=== PATIENT | female | born 2000 | race Caucasian/White ===

== ENCOUNTER → 2020-06-19 10:35 | Outpatient (BNVA) | payer MEDICAID, SELFPAY | PROVIDERS: Family Provider Family Medicine; Visit Provider Internal Medicine | DX: J06.9 Acute upper respiratory infection, unspecified (principal) | CPT/HCPCS: 87635 ==

== ENCOUNTER → 2021-07-29 14:50 | Outpatient (BNVA) | payer MEDICAID, SELFPAY | PROVIDERS: Family Provider Family Medicine; Visit Provider Nurse Practitioner Family | DX: Z20.822 Contact with and (suspected) exposure to COVID-19 (principal); J06.9 Acute upper respiratory infection, unspecified | CPT/HCPCS: 87635 ==

== ENCOUNTER → 2022-02-28 15:01 | Outpatient (BNVA) | payer MEDICAID, SELFPAY | PROVIDERS: Family Provider Family Medicine; Visit Provider Social Worker | DX: F31.13 Bipolar disorder, current episode manic without psychotic features, severe (principal) | CPT/HCPCS: 90837; 80053; 80178; 84439; 84443; 85025 ==

== ENCOUNTER → 2022-03-13 09:28 | Outpatient (BNVA) | payer MEDICAID, SELFPAY | PROVIDERS: Family Provider Family Medicine; Visit Provider Nurse Practitioner | DX: F43.12 Post-traumatic stress disorder, chronic (principal); F31.9 Bipolar disorder, unspecified; F17.210 Nicotine dependence, cigarettes, uncomplicated; F15.21 Other stimulant dependence, in remission; F12.20 Cannabis dependence, uncomplicated | CPT/HCPCS: 90792 ==

== ENCOUNTER → 2022-03-28 15:00 | Outpatient (BNVA) | payer MEDICAID, SELFPAY | PROVIDERS: Family Provider Family Medicine; Visit Provider Social Worker | DX: F31.13 Bipolar disorder, current episode manic without psychotic features, severe (principal) | CPT/HCPCS: 90837 ==

== ENCOUNTER → 2022-04-03 10:02 | Outpatient (BNVA) | payer MEDICAID, SELFPAY | PROVIDERS: Family Provider Family Medicine; Visit Provider Nurse Practitioner | DX: Z79.899 Other long term (current) drug therapy (principal) | CPT/HCPCS: 80178 ==

== ENCOUNTER → 2022-04-04 15:03 | Outpatient (BNVA) | payer MEDICAID, SELFPAY | PROVIDERS: Family Provider Family Medicine; Visit Provider Social Worker | DX: F31.13 Bipolar disorder, current episode manic without psychotic features, severe (principal); F43.12 Post-traumatic stress disorder, chronic | CPT/HCPCS: 90834 ==

== ENCOUNTER → 2022-04-09 07:56 | Outpatient (BNVA) | payer MEDICAID, SELFPAY | PROVIDERS: Family Provider Family Medicine; Visit Provider Nurse Practitioner | DX: F43.12 Post-traumatic stress disorder, chronic (principal); F31.9 Bipolar disorder, unspecified; F17.210 Nicotine dependence, cigarettes, uncomplicated; F15.21 Other stimulant dependence, in remission; F12.20 Cannabis dependence, uncomplicated | CPT/HCPCS: 99214 ==

== ENCOUNTER → 2022-04-11 14:50 | Outpatient (BNVA) | payer MEDICAID, SELFPAY | PROVIDERS: Family Provider Family Medicine; Visit Provider Social Worker | DX: F31.13 Bipolar disorder, current episode manic without psychotic features, severe (principal); F43.12 Post-traumatic stress disorder, chronic | CPT/HCPCS: 90837 ==

== ENCOUNTER → 2023-02-09 11:30 | Outpatient (BNVA) | payer MEDICAID, SELFPAY | PROVIDERS: Family Provider Family Medicine; Visit Provider Obstetrics & Gynecology | DX: Z11.3 Encounter for screening for infections with a predominantly sexual mode of transmission (principal); R87.610 Atypical squamous cells of undetermined significance on cytologic smear of cervix (ASC-US); R87.810 Cervical high risk human papillomavirus (HPV) DNA test positive | CPT/HCPCS: 84702; 86592; 86803; 87340; 87491; 87591; 87661; 87806 ==

== ENCOUNTER → 2023-08-24 13:51 | Outpatient (BNVA) | payer MEDICAID, SELFPAY | PROVIDERS: Family Provider Family Medicine; Visit Provider Family Medicine | DX: Z72.51 High risk heterosexual behavior (principal); Z20.2 Contact with and (suspected) exposure to infections with a predominantly sexual mode of transmission | CPT/HCPCS: 81025; 87491; 87591; 87661 ==

== ENCOUNTER → 2024-02-22 10:29 | Outpatient (BNVA) | payer MEDICAID, SELFPAY | PROVIDERS: Family Provider Family Medicine; PCP Family Medicine; Visit Provider Family Medicine | DX: R30.0 Dysuria (principal); Z34.90 Encounter for supervision of normal pregnancy, unspecified, unspecified trimester | CPT/HCPCS: 80307; 81003; 81025; 84144; 84443; 84702; 85025; 86592; 86762; 86803; 86850; 86900; 87086; 87340; 87491; 87591; 87624; 87806 ==

== ENCOUNTER 2024-03-03 15:04 | Outpatient (CLI) | payer MEDICAID, SELFPAY ==
--- NOTE | 2024-03-03 15:00 | US_ITS ---
WS: [id number] EARLY OBSTETRICAL ULTRASOUND (<14 WEEKS). HISTORY: Dating US - in next 1-2 weeks COMPARISON: None available. Transabdominal and transvaginal imaging is submitted. Uterus is enlarged. There are 2 fluid-filled sacs being displaced anteriorly within the uterus. Displ acement is due to prominent soft tissue along the posterior myometrium. This is predominately of incr eased echogenicity with mild cystic spaces. This may be an area of contraction but due to the displac ement of the endometrium this should be further evaluated for possible partial molar . This area measures at least 3.8 x 4.5 cm. The endometrium is being displaced anteriorly. The gestational sac which is to the RIGHT contains a f etal pole measuring 1.5 cm which corresponds to a gestation of 7 weeks and 6 days. Cardiac activity i s evident at 169 bpm. The additional small fluid collection may be a blighted oval or adjacent subcho rionic hemorrhage. There is no pole or cardiac activity. No yolk sac. No free fluid. Note: Recommend short-term, 1 week follow-up to reevaluate the intrauterine contents. Need to evaluat e whether the displacement of the endometrium persists. Also, measurements of the fetus with cardiac activity are not accurate and measurements need to be re submitted. Measurement within the worksheet were incorrectly submitted. This will be corrected at the time of the additional ultrasound. US/US OB <=14 wk fetus w transvag IMPRESSION: 1. There are 2 fluid-filled sacs in the endometrium. Only one contains a pole with cardiac activity. Gestational age estimated at 7 weeks 6 days. 2. The additional smaller sac does not contain a yolk sac or pole. This may be a blighted ovum or a subchorionic hemorrhage. 3. Endometrium is being displaced anteriorly by an area of increased echogenic ity. This needs to be further evaluated. Differential includes focal contractio n, fibroid or partial molar . No fibroid was identified on a prior pel quinten ultrasound from 2019.
== END 2024-03-03 15:05 | disposition home or self-care (01) ==
LOC: RAD 15:04
PROVIDERS: Family Provider Family Medicine; PCP Family Medicine; Visit Provider Family Medicine
DX: Z34.80 Encounter for supervision of other normal pregnancy, unspecified trimester (principal); O28.3 Abnormal ultrasonic finding on antenatal screening of mother
CPT/HCPCS: 76801; 76817

== ENCOUNTER 2024-03-10 12:40 | Outpatient (CLI) | payer MEDICAID, SELFPAY ==
--- NOTE | 2024-03-10 12:45 | US_ITS ---
WS: [id number] EARLY OBSTETRICAL ULTRASOUND (<14 WEEKS). HISTORY: Follow up on cystic structure, growth and blighted ovum COMPARISON: 03/03/2024 Intrauterine gestational sac is identified. This sac contains a pole and crown-rump length with cardiac activity. Cardiac activity at 171 BPM. [place]-rump length measures 2.3 cm which corresponds t o a gestation of 9w0d. Normal-appearing yolk sac and amnion demonstrated. There is a small fluid cande ection adjacent to the normal-appearing gestational sac. This collection is inseparable from the norm al gestational sac and measures 0.6 x 0.7 x 0.7 cm. There is no pole or cardiac activity. This small cystic areas decreasing in size. The previously described displacement of the gestational sac is no longer present. The large area of increased echogenicity is resolved. There is no longer appears to be a molar and may have b een a form of contraction. No free fluid. Normal size ovaries with no mass. Note: The crown-rump length measurement on today's examination is more accurate than the measurement obtained on the prior study. Recommend using this gestational age moving forward as a reference point . US/US OB <=14 wk fetus w transvag IMPRESSION: 1. Single intrauterine gestation of 9w0d with an EDC of 10/13/2024. 2. Normal cardiac activity. 3. The small fluid collection adjacent to the gestational sac containing the e mbryo continues to decrease in size. This may be a resolving blighted ovum or c ystic subchorionic bleed. There does not appear to be a pole or cardiac a ctivity within the smaller sac which is decreasing in size. 4. Resolved area of increased density distorting the gestational sac. This was probably a form of uterine contraction. There is no evidence for partial molar .
== END 2024-03-10 12:41 | disposition home or self-care (01) ==
LOC: RAD 12:40
PROVIDERS: Family Provider Family Medicine; PCP Family Medicine; Visit Provider Family Medicine
DX: R93.89 Abnormal findings on diagnostic imaging of other specified body structures (principal); Z34.80 Encounter for supervision of other normal pregnancy, unspecified trimester
CPT/HCPCS: 76801; 76817

== ENCOUNTER 2024-03-20 14:03 | Emergency (ER) | payer MEDICAID, SELFPAY ==
--- NOTE | 2024-03-20 14:07 | USR_ITS ---
PROCEDURE INFORMATION: Exam: US First Trimester, Transabdominal and US , Transvaginal Exam date and time: 03/20/2024 2:55 PM Age: 23 years old Clinical indication: Lmp or gestational age (in weeks): 10w3d; Antepartum complications; Bleeding; LABS AND CLINICAL REPORTS: Gestational age (Established): 10 w 3 d Estimated due date (Established): 10/13/2024 TECHNIQUE: Imaging protocol: Real-time transabdominal obstetrical ultrasound of the maternal pelvis and a first trimester , less than 14 weeks 0 days, with image documentation. Transvaginal imaging was used for better evaluation of the fetus, adnexa, and/or cervix. COMPARISON: US OB <=14 wk fetus w transvag 03/10/2024 1:15 PM FINDINGS: GESTATION: Gestation: Yolk sac measures 3.6 mm. Intermediate echogenicity collection adjacent to the gestational sac measures 1.9 x 1.8 x 3.0 cm. Embryonic/ heart rate: 165 bpm Extra-embryonic membranes/Placenta: Unremarkable. No subchorionic bleed. Amniotic/Chorionic fluid: Amniotic and extra-amniotic fluid are normal for gestational age. BIOMETRY: Gestational age (AUA): Estimated gestational age by ultrasound is 10 weeks and 5 days. Estimated due date (AUA): Estimated due date by ultrasound is 10/11/2024. MATERNAL: Uterus: Unremarkable. Cervix: Normal cervical length at 3.8 cm. Right ovary/adnexa: The right ovary measures 1.7 x 2.1 x 1.7 cm with a volume of 3.3 cc. The left ovary measures 2.8 x 1.7 x 2.0 cm with a volume of 5.1 cc. 1.0 x 1.0 x 1.0 cm cystic lesion in the left ovary likely represents a corpus luteum cyst. Left ovary/adnexa: See Right ovary/adnexa finding. Intraperitoneal space: No intraperitoneal free fluid. US/US OB <= 14 weeks fetus [id number] IMPRESSION: 1. There is a 3.0 cm collection adjacent to the gestational sac with intermediate echogenicity likely representing subacute subchorionic hemorrhage. 2. Single live intrauterine gestation. EGA based on ultrasound is 10 weeks and 5 days.
[2024-03-20 14:10] VITALS: BP 118/82; PULSE 89; RESP 14; TEMP 36.6; O2SAT 99
[2024-03-20 14:29] LABS: Basophils % 0.1 %; Eosinophils # 0.2 10^3/uL (0.0-0.8); Eosinophils % 2.2 %; Hematocrit 39.1 % (36-47); Lymphocytes # 1.1 10^3/uL (0.8-4.8); Lymphocytes % 14.5 %; Mean Corpuscular HGB Conc 34.3 g/dL (30-55); Mean Corpuscular Hemoglobin 32.1 pg (27-33); Mean Corpuscular Volume 93.5 fl (85-98); Mean Platelet Volume 10.4 fL (7.4-10.4); Monocytes # 0.5 10^3/uL (0.2-0.9); Monocytes % 7.3 %; Neutrophils # 5.58 10^3/uL (1.8-7.7); Neutrophils % 75.5 %; Nucleated Red Blood Cells % 0 %; Platelet Count 154 10^3/cmm (157-399); Red Blood Count 4.18 10^6/uL (3.85-5.65); Red Cell Distribution Width 12.4 % (12.1-15.1); White Blood Count 7.39 10^3/uL (3.29-11.43)
[2024-03-20 15:00] LABS: Alanine Aminotransferase 12 U/L (0-33); Alkaline Phosphatase 53 U/L (35-105); Anion Gap 15.4 (5-19); Aspartate Amino Transferase 14 U/L (0-32); Blood Urea Nitrogen 6 mg/dL (6-20); Calcium 8.9 mg/dL (8.5-10.5); Carbon Dioxide 23 mmol/L (22-29); Chloride 102 mmol/L (98-107); Creatinine Clr Calc Pharmacy 139.2824; Globulin 2.3 g/dL (1.3-4.6); Glomerular Filtration Rate 151.6 mL/min (90-130); Glucose 95 mg/dL (65-115); Osmolality Calculated 279 mOsm/kg (285-295); Potassium 4.4 mmol/L (3.5-5.1); Sodium 136 mmol/L (136-145); Total Bilirubin 0.3 mg/dL (0.15-1.2); Total Protein 6.3 g/dL (6.6-8.7)
[2024-03-20 15:14] LABS: Urine Appearance Cloudy (CLEAR); Urine Color Red (Yellow); pH Urine 7 (5-7)
[2024-03-20 15:15] LABS: Add Urine Culture? Yes; Add Urine Microscopic? YES; Bacteria Urine TRACE /hpf; Bilirubin Urine Neg (Negative); Blood Urine 3+ (Negative); Glucose Urine UA Norm (Normal); Ketones Urine Negative (Negative); Leukocyte Esterase Urine Negative (Negative); Nitrate Urine Negative (Negative); Protein Urine 2+ (Negative); RBC Urine TOO NUMEROUS TO CNT /hpf (0-2); Urobilinogen Urine Norm (Negative); WBC Urine 0-4 /hpf (0-5)
--- NOTE | 2024-03-20 16:28 | ED_ITS ---
HPI - 2 General: Chief complaint: Vaginal Bleeding Stated complaint: bleeding Time Seen by Provider: 03/20/24 14:07 Source: patient and family Mode of arrival: ambulatory Limitations: no limitations History of Present Illness: Patient is approximately 10 weeks comes in with vaginal bleeding. [place] episodes of this before previous ultrasounds that showed a cystic subchorionic hemorrhage. She had a sudden amount of decent volume of blood loss mostly clots. She has pictures and I reviewed them. No other complications with this . Related Data: : 3 Review of Systems 2 General: Reports: 10 or more systems reviewed and unremarkable except in HPI and below PFSH ED 2 PFSH: Medical History [place] use Cannabis dependence, uncomplicated Other stimulant dependence, in remission Nicotine dependence, cigarettes, uncomplicated Bipolar 1 disorder Post-traumatic stress disorder, chronic Psychiatric care Surgical History H/O removal of cyst Family History Grandmother Diabetes maternal and maternal great Hyperlipidemia maternal great Hypertension maternal Breast cancer, Onset Age: 71 maternal Denies family history of Colon cancer Ovarian cancer Clotting disorder Heart disease Anesthesia complication Bleeding disorder Uterine cancer Thyroid disease Stroke Social History Smoking and tobacco/nicotine status: current every day tobacco/nicotine user (0.5 ppd ) cigarettes Packs smoked per day: 0.25 Alcohol intake: never Substance/Drug Use: current Other substance/drug use details: Daily Female Reproductive History: : 3 Physical Exam 2 Const: COMMON NORMALS: no acute distress, average body habitus, patient oriented x3, healthy appearing, alert and well nourished GENERAL APPEARANCE: well kempt and well developed HENMT: COMMON NORMALS: normocephalic, atraumatic and external ears normal H EAD & SCALP: normocephalic and atraumatic EXTERNAL EAR: Yes external ears normal Eye: COMMON NORMALS: EOMs intact bilaterally and conjunctivae normal C ONJUNCTIVA: Yes conjunctivae normal Neck/C-Spine: COMMON NORMALS: full ROM Chest: CHEST: Yes Symmetrical chest wall rise and No Surgical scars present (Chest) Resp: COMMON NORMALS: normal respiratory effort, No retractions and No use of accessory muscles GI: COMMON NORMALS: Soft to palpation INSPECTION: No abdominal distension PALPATION: Yes Soft to palpation, No Guarding due to palpation present (GI) and No Rebound tenderness present Extremity: COMMON NORMALS: normal to inspection, full ROM, capillary refill normal and no clubbing, cyanosis or edema Neuro: COMMON NORMALS: patient oriented x3 SENSORIUM/ORIENTATION: Yes alert Psych: APPEARANCE: Yes well kempt Skin: COMMON NORMALS: no rashes or lesions noted, no wounds, turgor normal and no jaundice GENERAL SKIN EXAM: no rashes or lesions noted and turgor normal Course 2 Vital Signs: Vital signs: Vital Signs Temperature 97.9 F 03/20/24 14:10 Pulse Rate 89 03/20/24 14:10 Respiratory Rate 14 03/20/24 14:10 Blood Pressure 118/82 03/20/24 14:10 Pulse Oximetry 99 03/20/24 14:10 MDM - OB/Uterine Contractions Medical Decision Making Personally reviewed previous ultrasound report showing cystic subchronic hemorrhage. Versus blighted ovum. At that time the fetus was doing well also. Personally reviewed today's ultrasound and it shows an area of subchorionic hemorrhage with heart rate of 165. Radiology further details a 3 cm collection adjacent to the gestational sac with intermittent echogenicity consistent with subchorionic hemorrhage. Fetus is measuring at 10 weeks 5 days. Results been discussed with the patient and she will be discharged. Medical Records I reviewed the patient's medical records. Lab Data I reviewed the patient's lab results. 03/20/24 14:22 03/20/24 14:22 Radiology Impressions Ultrasound 03/20/24 14:07 IMPRESSION: 1. There is a 3.0 cm collection adjacent to the gestational sac with intermediate echogenicity likely representing subacute subchorionic hemorrhage. 2. Single live intrauterine gestation. EGA based on ultrasound is 10 weeks and 5 days. Laboratory Results WBC 7.39 10^3/uL (3.29-11.43) 03/20/24 14:22 RBC 4.18 10^6/uL (3.85-5.65) 03/20/24 14:22 Hgb 13.40 g/dL (11.27-16.99) 03/20/24 14: Hct 39.1 % (36-47) 03/20/24 14:22 MCV 93.5 fl (85-98) 03/20/24 14:22 MCH 32.1 pg (27-33) 03/20/24 14:22 MCHC 34.3 g/dL (30-55) 03/20/24 14:22 RDW 12.4 % (12.1-15.1) 03/20/24 14:22 Plt Count 154 10^3/cmm (157-399) L 03/20/24 14:22 MPV 10.4 fL (7.4-10.4) 03/20/24 14:22 Neut % (Auto) 75.5 % 03/20/24 14:22 Lymph % (Auto) 14.5 % 03/20/24 14:22 [place] % (Auto) 7.3 % 03/20/24 14:22 Eos % (Auto) 2.2 % 03/20/24 14:22 Baso % (Auto) 0.1 % 03/20/24 14:22 Neut # (Auto) 5.58 10^3/uL (1.8-7.7) 03/20/24 14:22 Lymph # (Auto) 1.1 10^3/uL (0.8-4.8) 03/20/24 14:22 Dick[place] # (Auto) 0.5 10^3/uL (0.2-0.9) 03/20/24 14:22 Eos # (Auto) 0.2 10^3/uL (0.0-0.8) 03/20/24 14:22 Baso # (Auto) 0.0 10^3/uL (0.0-0.1) 03/20/24 14:22 Nucleated RBC % (auto) 0 % 03/20/24 14:22 Nucleated RBCs # 0.0 /100WBC 03/20/24 14:22 Sodium 136 mmol/L (136-145) 03/20/24 14:22 Potassium 4.4 mmol/L (3.5-5.1) 03/20/24 14:22 Chloride 102 mmol/L (98-107) 03/20/24 14:22 Carbon Dioxide 23 mmol/L (22-29) 03/20/24 14:22 Anion Gap 15.4 (5-19) 03/20/24 14:22 BUN 6 mg/dL (6-20) 03/20/24 14:22 Creatinine 0.5 mg/dL (0.5-0.9) 03/20/24 14:22 GFR Calculation 151.6 mL/min (90-130) H 03/20/24 14:22 Glucose 95 mg/dL (65-115) 03/20/24 14:22 Calculated Osmolality 279 mOsm/kg (285-295) L 03/20/24 14:22 Calcium 8.9 mg/dL (8.5-10.5) 03/20/24 14:22 Total Bilirubin 0.3 mg/dL (0.15-1.2) 03/20/24 14:22 AST 14 U/L (0-32) 03/20/24 14:22 ALT 12 U/L (0-33) 03/20/24 14:22 Alkaline Phosphatase 53 U/L (35-105) 03/20/24 14:22 Total Protein 6.3 g/dL (6.6-8.7) L 03/20/24 14:22 Albumin 4.0 g/dL (3.5-5.2) 03/20/24 14:22 Globulin 2.3 g/dL (1.3-4.6) 03/20/24 14:22 Ser , Semi-Qnt 38854.00 mIU/mL 03/20/24 14:22 Urine Color Red (Yellow) A 03/20/24 14:30 Urine Appearance Cloudy (CLEAR) A 03/20/24 14:30 Urine pH 7 (5-7) 03/20/24 14:30 Ur Specific [place] 1.010 (1.005-1.030) 03/20/24 14:30 Urine Protein 2+ (Negative) H 03/20/24 14:30 Urine Glucose (UA) Norm (Normal) 03/20/24 14:30 Urine Ketones Negative (Negative) 03/20/24 14:30 Urine Blood 3+ (Negative) H 03/20/24 14:30 Urine Nitrate Negative (Negative) 03/20/24 14:30 Urine Bilirubin Neg (Negative) 03/20/24 14:30 Urine Urobilinogen Norm mg/dL (Negative) 03/20/24 14:30 Ur Leukocyte Esterase Negative (Negative) 03/20/24 14:30 Urine RBC Too numerous to cnt /hpf (0-2) H 03/20/24 14:30 Urine WBC 0-4 /hpf (0-5) H 03/20/24 14:30 Ur Squamous Epith Cells None /hpf (0-5) 03/20/24 14:30 Amorphous Sediment Not Reportable 03/20/24 14:30 Urine Bacteria Trace /hpf (NONE) 03/20/24 14:30 All radiology interpretation(s) finalized by discharge Discharge Plan Discharge Patient Disposition: Home Clinical Impression: Vaginal bleeding in , Subchorionic hemorrhage in first trimester Condition: Stable Prescriptions: No Action lamotrigine [Lamictal] 100 mg tablet 100 mg PO DAILY Qty: 30 2RF duloxetine [Cymbalta] 30 mg capsule,delayed release(DR/EC) 30 mg PO DAILY Qty: 30 1RF doxylamine succinate 25 mg tablet See Rx Instructions .Route .COMPLEX PRN (Reason: allergy symptoms) Qty: 30 6RF Rx Instructions: Take 1 tab by mouth each evening and 1/2 tab in the am as needed for nausea PRN; pyridoxine (vitamin B6) 100 mg tablet 100 mg PO BID PRN (Reason: Nausea) Qty: 60 3RF PNV no.154-iron fumarate-folic 27 mg iron- 1 mg tablet 1 tab PO DAILY Qty: 90 3RF folic acid 1 mg tablet 1 mg PO DAILY Qty: 30 2RF doxylamine succinate 25 mg tablet See Rx Instructions .Route .COMPLEX PRN (Reason: allergy symptoms) Qty: 30 6RF Rx Instructions: Take 1 tab by mouth each evening and 1/2 tab in the am as needed for nausea PRN; pyridoxine (vitamin B6) 100 mg tablet 100 mg PO BID PRN (Reason: Nausea) Qty: 60 3RF Discharge Orders: Discharge ED (Routine); Ordered 03/20/24 Ordered By: Greg Topete Referrals: Bernard Smith MD [Primary Care Provider] - Discharge Diet: Usual diet Discharge Activity: Resume usual activity Patient Instructions: Subchorionic Hemorrhage (ED) Coding Level of Care Code ED Fruit Preserver for Milly Rodas
[2024-03-20 16:42] VITALS: PULSE 86; RESP 18; O2SAT 98
[2024-03-20 16:43] VITALS: PULSE 86; RESP 18; O2SAT 98
== END 2024-03-20 16:43 | disposition home or self-care (01) ==
PROVIDERS: Nurse Practitioner Family; Emergency Provider Emergency Medicine; Family Provider Family Medicine; PCP Family Medicine
DX: O20.8 Other hemorrhage in early pregnancy (principal); O99.331 Smoking (tobacco) complicating pregnancy, first trimester; F17.210 Nicotine dependence, cigarettes, uncomplicated; Z3A.10 10 weeks gestation of pregnancy
CPT/HCPCS: 36415; 76801; 80053; 81001; 84702; 85025; 87086; 99284

== ENCOUNTER 2024-04-20 10:33 | Emergency (ER) | payer MEDICAID, SELFPAY ==
[2024-04-20] VITALS (8 sets, daily range): BP systolic 106–124; BP diastolic 61–90; PULSE 69–93; RESP 14–16; TEMP 36.9; O2SAT 98–100; BMI 19.1
[2024-04-20] MEDS: sodium chloride 0.9% 1,000 ML 999 ML IV (11:17)
--- NOTE | 2024-04-20 11:35 | USR_ITS ---
PROCEDURE INFORMATION: Exam: US First Trimester, Transabdominal Exam date and time: 04/20/2024 11:42 AM Age: 24 years old Clinical indication: Screening exam; Routine US, uterus; Additional info: Concerns for demise/misscarriage LABS AND CLINICAL REPORTS: Last menstrual period start date: 01/02/2024 TECHNIQUE: Imaging protocol: Real-time transabdominal obstetrical ultrasound of the maternal pelvis and a first trimester , less than 14 weeks 0 days, with image documentation. COMPARISON: US OB <= 14 weeks fetus [id number] 03/20/2024 2:55 PM FINDINGS: GESTATION: Gestation: There is no evidence of intrauterine gestational sac. Endometrial stripe is normal at 9 mm. Embryonic/ heart rate: Not applicable BIOMETRY: Gestational age (AUA): Not applicable MATERNAL: Uterus: Unremarkable. Cervix: Unremarkable. Endocervical canal is closed. Right ovary/adnexa: Unremarkable. Left ovary/adnexa: Unremarkable. Intraperitoneal space: No intraperitoneal free fluid. US/US OB <= 14 weeks fetus [id number] IMPRESSION: No evidence of
--- NOTE | 2024-04-20 11:39 | ED_ITS ---
HPI - General Adult 2 General: Chief complaint: Vaginal Bleeding Stated complaint: abd pain, bleeding, possible miscarriage Time Seen by Provider: 04/20/24 10:48 History of Present Illness: 44-year-old female presents emerged part she is a AB 1 she reports that she was recent diagnosed with subchorionic hemorrhage she has been seeing Dr. Smith in the clinic patient currently reports she is on 15 weeks IUP per dates she endorses that she had a significant mount of bleeding last night and some tissue that has not since thus resolved with some lower abdominal pain this last for couple of hours patient presents to the ER today she is concerned she may have had a miscarriage again patient reports she attempted to contact her OB was unable to. Patient presents to the ER for further assessment and management. Patient currently does not report and only reports minimal bleeding with no cramping. Associated symptoms: Deny chest pain, dyspnea, headache(s), malaise, nausea, rash, palpitations or vomiting Review of Systems 2 General: Reports: 10 or more systems reviewed and unremarkable except in HPI and below Const: Denies: fever(s), chills, fatigue or malaise Eyes: Denies: change in vision or blurry vision Card: Denies: chest pain or palpitations Resp: Denies: dyspnea or productive cough GI: Denies: abdominal pain, nausea or vomiting : Reports: vaginal bleeding; Denies: flank pain Musc: Denies: extremity pain or extremity swelling Skin/Breast: Denies: rash or pruritus Neuro: Denies: headache(s) Psych: Denies: anxiety or depression Wenceslao/Lymph: Denies: easy bleeding All/Imm: Denies: urticaria, throat swelling or facial swelling PFSH ED 2 PFSH: Medical History Bemiss use Cannabis dependence, uncomplicated Other stimulant dependence, in remission Nicotine dependence, cigarettes, uncomplicated Bipolar 1 disorder Post-traumatic stress disorder, chronic Psychiatric care Surgical History H/O removal of cyst Family History Grandmother Diabetes maternal and maternal great Hyperlipidemia maternal great Hypertension maternal Breast cancer, Onset Age: 71 maternal Denies family history of Colon cancer Ovarian cancer Clotting disorder Heart disease Anesthesia complication Bleeding disorder Uterine cancer Thyroid disease Stroke Social History Smoking and tobacco/nicotine status: current every day tobacco/nicotine user (0.5 ppd ) cigarettes Packs smoked per day: 0.25 Alcohol intake: never Substance/Drug Use: current Other substance/drug use details: Daily Physical Exam 2 Narrative: EXAM NARRATIVE: Patient is quite tearful on exam patient currently does not appear in any obvious acute distress. Const: COMMON NORMALS: no acute distress, patient oriented x3 and healthy appearing HENMT: COMMON NORMALS: normocephalic and atraumatic HEAD & SCALP: n ormocephalic and atraumatic Eye: COMMON NORMALS: Equal, round and reactive pupils present and EOMs intact bilaterally PUPIL: Yes Equal, round and reactive pupils present Neck/C-Spine: COMMON NORMALS: full ROM, supple and no JVD Lymph: LYMPHATIC: no lymphadenopathy noted Chest: COMMONS NORMALS: normal inspection of the chest and normal palpation of entire chest wall Resp: COMMON NORMALS: normal respiratory effort, No retractions and clear to auscultation bilaterally EFFORT & INSPECTION: Yes able to speak in complete sentences and Yes symmetric chest movement AUSCULTATION: clear to auscultation bilaterally Cardio: COMMON NORMALS: no JVD, regular rate and regular rhythm RATE: r egular rate RHYTHM: regular rhythm GI: COMMON NORMALS: Normal to inspection, nondistended, normoactive bowel sounds present, Soft to palpation and non-tender INSPECTION: Yes normal to inspection PALPATION: Yes Soft to palpation : COMMON NORMALS: Yes no CVA tenderness BLADDER/KIDNEY EXAM: Yes no CVA tenderness Back/Pelvis: COMMON NORMALS: no CVA tenderness Extremity: COMMON NORMALS: normal to inspection and full ROM Neuro: COMMON NORMALS: patient oriented x3, CN's II-XII intact bilaterally, moves all extremities and no focal motor deficits Psych: COMMON NORMALS: mental status grossly normal, Normal thought process present, cooperative and normal affect THOUGHT PROCESS: Normal thought process present Skin: COMMON NORMALS: no rashes or lesions noted GENERAL SKIN EXAM: no rashes or lesions noted Course 2 Vital Signs: Vital signs: Vital Signs Temperature 98.5 F 04/20/24 10:38 Pulse Rate 70 04/20/24 13:30 Respiratory Rate 14 04/20/24 13:30 Blood Pressure 116/69 04/20/24 13:30 Pulse Oximetry 99 04/20/24 13:30 Oxygen Delivery Me thod Room Air 04/20/24 13:30 MDM - General Adult Medical Decision Making Due to patient's symptoms and condition IV was established lab work and imaging will be obtained further workup for worsening of the patient's subchorionic hemorrhage versus miscarriage will be obtained we will continue to follow. Patient's ultrasound reveals concerning findings for no Intrauterine or gestational sac patient still has a bit about elevated beta quant of 2300 did advise need for further follow-up with OB to further eval it appears to be this point time the patient has unfortunately went through miscarriage patient was provided return precautions advised further follow-up is indicated in which to return the interim if any of her symptoms persist or worse currently the patient is not having bleeding or spotting. Lab Data 04/20/24 11:13 04/20/24 11:13 Radiology Impressions Ultrasound 04/20/24 11:35 IMPRESSION: No evidence of Laboratory Results WBC 7.22 10^3/uL (3.29-11.43) 04/20/24 11:13 RBC 3.93 10^6/uL (3.85-5.65) 04/20/24 11:13 Hgb 12.80 g/dL (11.27-16.99) 04/20/24 11:13 Hct 37.7 % (36-47) 04/20/24 11:13 MCV 95.9 fl (85-98) 04/20/24 11:13 MCH 32.6 pg (27-33) 04/20/24 11:13 MCHC 34.0 g/dL (30-55) 04/20/24 11:13 RDW 12.5 % (12.1-15.1) 04/20/24 11:13 Plt Count 182 10^3/cmm (157-399) 04/20/24 11:13 MPV 11.1 fL (7.4-10.4) H 04/20/24 11:13 Neut % (Auto) 73.3 % 04/20/24 11:13 Lymph % (Auto) 16.3 % 04/20/24 11:13 [place] % (Auto) 7.3 % 04/20/24 11:13 Eos % (Auto) 2.9 % 04/20/24 11:13 Baso % (Auto) 0.1 % 04/20/24 11:13 Neut # (Auto) 5.28 10^3/uL (1.8-7.7) 04/20/24 11:13 Lymph # (Auto) 1.2 10^3/uL (0.8-4.8) 04/20/24 11:13 [place] # (Auto) 0.5 10^3/uL (0.2-0.9) 04/20/24 11:13 Eos # (Auto) 0.2 10^3/uL (0.0-0.8) 04/20/24 11:13 Baso # (Auto) 0.0 10^3/uL (0.0-0.1) 04/20/24 11:13 Nucleated RBC % (auto) 0 % 04/20/24 11:13 Nucleated RBCs # 0.0 /100WBC 04/20/24 11:13 Sodium 137 mmol/L (136-145) 04/20/24 11:13 Potassium 4.1 mmol/L (3.5-5.1) 04/20/24 11:13 Chloride 103 mmol/L (98-107) 04/20/24 11:13 Carbon Dioxide 23 mmol/L (22-29) 04/20/24 11:13 Anion Gap 15.1 (5-19) 04/20/24 11:13 BUN 5 mg/dL (6-20) L 04/20/24 11:13 Creatinine 0.5 mg/dL (0.5-0.9) 04/20/24 11:13 GFR Calculation 150.3 mL/min (90-130) H 04/20/24 11:13 Glucose 101 mg/dL (65-115) 04/20/24 11:13 Calculated Osmolality 281 mOsm/kg (285-295) L 04/20/24 11:13 Calcium 9.1 mg/dL (8.5-10.5) 04/20/24 11:13 Total Bilirubin 0.5 mg/dL (0.15-1.2) 04/20/24 11:13 AST 11 U/L (0-32) 04/20/24 11:13 ALT 10 U/L (0-33) 04/20/24 11:13 Alkaline Phosphatase 70 U/L (35-105) 04/20/24 11:13 Total Protein 6.5 g/dL (6.6-8.7) L 04/20/24 11:13 Albumin 4.1 g/dL (3.5-5.2) 04/20/24 11:13 Globulin 2.4 g/dL (1.3-4.6) 04/20/24 11:13 Ser , Semi-Qnt 2353.00 mIU/mL 04/20/24 11:13 Urine Color Yellow (Yellow) 04/20/24 11:15 Urine Appearance Clear (CLEAR) 04/20/24 11:15 Urine pH 5 (5-7) 04/20/24 11:15 Ur Specific [place] 1.020 (1.005-1.030) 04/20/24 11:15 Urine Protein Neg (Negative) 04/20/24 11:15 Urine Glucose (UA) Norm (Normal) 04/20/24 11:15 Urine Ketones Negative (Negative) 04/20/24 11:15 Urine Blood 3+ (Negative) H 04/20/24 11:15 Urine Nitrate Negative (Negative) 04/20/24 11:15 Urine Bilirubin Neg (Negative) 04/20/24 11:15 Urine Urobilinogen Neg mg/dL (Negative) 04/20/24 11:15 Ur Leukocyte Esterase Negative (Negative) 04/20/24 11:15 Urine RBC 0-4 /hpf (0-2) H 04/20/24 11:15 Urine WBC 5-10 /hpf (0-5) H 04/20/24 11:15 Ur Squamous Epith Cells 5-10 /hpf (0-5) H 04/20/24 11:15 Amorphous Sediment Not Reportable 04/20/24 11:15 Urine Bacteria 1+ /hpf (NONE) H 04/20/24 11:15 Urine Mucus 2+ /hpf 04/20/24 11:15 Blood Type O Positive 04/20/24 11:13 Rho(D) Type Rh positive 04/20/24 11:13 All radiology interpretation(s) finalized by discharge Discharge Plan Discharge Patient Disposition: Home Clinical Impression: Spontaneous miscarriage Condition: Stable Prescriptions: No Action pyridoxine (vitamin B6) 100 mg tablet 100 mg PO BID PRN (Reason: Nausea) Qty: 60 3RF folic acid 1 mg tablet 1 mg PO QPM Lamictal 100 mg tablet 100 mg PO QPM PNV no.154-iron fumarate-folic 27 mg iron- 1 mg tablet 1 tab PO QPM Discharge Orders: Discharge ED (Routine); Ordered 04/20/24 Ordered By: Anson Galarza Referrals: Bernard Smith MD [Primary Care Provider] - 1-3 days (For further evaluation including repeat beta quant's and/or ultrasound if indicated) Discharge Diet: Regular Discharge Activity: Resume usual activity Patient Instructions: Miscarriage (ED) Activity Restrictions/Additional Instructions: It is recommended you further follow-up with your program schedule clerk or primary care doctor for repeat blood work as well as possibly repeat ultrasound to further determine if you have had a miscarriage. Please return to the ER for any additional concerns or needs. Coding Level of Care Code ED Fire Chief Deputy for Milly Rodas
--- NOTE | 2024-04-20 11:39 | PC.NURSE ---
ATTEMPTED TO ASSESS HEART TONES, NOT CLEAR HEART TONES HEARD, DOPPLER AT ONE POINT PICKED UP 172. US CURRENTLY ORDERED.
[2024-04-20 11:41] LABS: Basophils % 0.1 %; Eosinophils # 0.2 10^3/uL (0.0-0.8); Eosinophils % 2.9 %; Hematocrit 37.7 % (36-47); Lymphocytes # 1.2 10^3/uL (0.8-4.8); Lymphocytes % 16.3 %; Mean Corpuscular Hemoglobin 32.6 pg (27-33); Mean Corpuscular Volume 95.9 fl (85-98); Mean Platelet Volume 11.1 fL (7.4-10.4); Monocytes # 0.5 10^3/uL (0.2-0.9); Monocytes % 7.3 %; Neutrophils # 5.28 10^3/uL (1.8-7.7); Neutrophils % 73.3 %; Nucleated Red Blood Cells % 0 %; Platelet Count 182 10^3/cmm (157-399); Red Blood Count 3.93 10^6/uL (3.85-5.65); Red Cell Distribution Width 12.5 % (12.1-15.1); White Blood Count 7.22 10^3/uL (3.29-11.43)
[2024-04-20 12:10] LABS: Alanine Aminotransferase 10 U/L (0-33); Albumin Level 4.1 g/dL (3.5-5.2); Alkaline Phosphatase 70 U/L (35-105); Anion Gap 15.1 (5-19); Aspartate Amino Transferase 11 U/L (0-32); Blood Urea Nitrogen 5 mg/dL (6-20); Calcium 9.1 mg/dL (8.5-10.5); Carbon Dioxide 23 mmol/L (22-29); Chloride 103 mmol/L (98-107); Creatinine Clr Calc Pharmacy 138.5747; Globulin 2.4 g/dL (1.3-4.6); Glomerular Filtration Rate 150.3 mL/min (90-130); Glucose 101 mg/dL (65-115); Osmolality Calculated 281 mOsm/kg (285-295); Potassium 4.1 mmol/L (3.5-5.1); Sodium 137 mmol/L (136-145); Total Bilirubin 0.5 mg/dL (0.15-1.2); Total Protein 6.5 g/dL (6.6-8.7)
[2024-04-20 13:05] LABS: Bilirubin Urine Neg (Negative); Blood Urine 3+ (Negative); Glucose Urine UA Norm (Normal); Ketones Urine Negative (Negative); Leukocyte Esterase Urine Negative (Negative); Nitrate Urine Negative (Negative); Protein Urine Neg (Negative); Urine Appearance Clear (CLEAR); Urine Color Yellow (Yellow); Urobilinogen Urine Neg (Negative); pH Urine 5 (5-7)
[2024-04-20 13:06] LABS: RBC Urine 0-4 /hpf (0-2)
[2024-04-20 13:07] LABS: Add Urine Culture? No; Bacteria Urine 1+ /hpf; Mucus Urine 2+ /hpf
== END 2024-04-20 14:10 | disposition home or self-care (01) ==
PROVIDERS: Family Medicine; Emergency Provider Emergency Medicine; Family Provider Family Medicine; PCP Family Medicine
DX: O03.9 Complete or unspecified spontaneous abortion without complication (principal); F17.210 Nicotine dependence, cigarettes, uncomplicated
CPT/HCPCS: 76801; 80053; 81001; 84702; 85025; 86900; 96360; 99284; J7030

== ENCOUNTER → 2025-04-25 15:35 | Outpatient (BNVA) | payer MEDICAID, SELFPAY | PROVIDERS: Family Provider Family Medicine; PCP Family Medicine; Visit Provider Family Medicine | DX: Z51.81 Encounter for therapeutic drug level monitoring (principal); R10.11 Right upper quadrant pain | CPT/HCPCS: 80053; 85025; 86141 ==

== ENCOUNTER 2025-04-26 08:08 | Outpatient (CLI) | payer MEDICAID, SELFPAY ==
--- NOTE | 2025-04-26 08:00 | US_ITS ---
WS: [id number] Exam: US gall bladder [id number] Date/Time of Exam: 04/26/2025 8:16 AM Reason For Exam: Right upper quadrant pain - Please schedule in next 1 day The gallbladder appears normal. No stones are identified. No gallbladder wall thickening or edema. No para cholecystic fluid. Common bile duct measures 3 mm in greatest diameter. The liver is unremarkable. Normal RIGHT kidney measures 8.3 x 4.6 x 4.4 cm. The aorta and IVC are unremarkable. No mass or free fluid in the RIGHT abdomen. The pancreas was unremarkable as visualized. US/US gall bladder [id number] IMPRESSION: 1. Normal-appearing gallbladder. 2. No other significant finding in the RIGHT abdomen.
== END 2025-04-26 08:09 | disposition home or self-care (01) ==
LOC: RAD 08:09
PROVIDERS: PCP Family Medicine; Visit Provider Family Medicine
DX: R10.11 Right upper quadrant pain (principal)
CPT/HCPCS: 76705

== ENCOUNTER 2025-09-16 12:51 | Emergency (ER) | payer MEDICAID, SELFPAY ==
--- OUTSIDE RECORDS SUMMARY | 2016-08-14 07:20 | XMS_ITS | Continuity of Care Document ---
Author Organization [facility] Address [address] [place] [address] Phone Care Team Providers [facility] Manager Name Role Phone Unavailable Unavailable Unavailable Procedures Procedure Date Urin Pg Test Visual Color Comp 16 Ua Dip Stik/tablet; Wo Micro A 16 Trichomonas Rapid Test BVAG (BV Blue Test) Offic/outpt E[facility] Services provided in an urgent care cent er Advance Directives Directive Yes / No Effective Date File Name No Information Encounters Encounter Description Practice Location Reason(s) For Visit Diagnoses Date Provider Providers Copied on Encounter [facility], [address], [place], [place], [id number], tel:[phone] [facility] [place] No Information No Information Offic/outpt E[facility], [address], [place], [place], [id number], tel:[phone] [facility] [place] vaginal bleeding (chief complaint) Encounter for test, result negative No Information Family History Family Member Type Diagnosis Age At Onset No Information Payers Payer name Insurance type Covered constitution party ID Authoriza tion(s) For Life PVD [id number] Social History Type Description Quantity Date Captured Comments Sex Female Smoking Status No Information Chief Complaint And Reason For Visit No Information Reason For Referral Reason For Referral No Information History Of Present Illness Encounter Date Complaint History Of Prese nt Illness No Information Functional Status Date Functional Assessmen t No Information Instructions Date Instruction Additional Infor mation No Information Assessments Type Assessment Date No Information Patient Care Teams Name Effective Dates (start - stop) Status Members No Information
[2025-09-16 12:54] VITALS: BP 139/97; PULSE 109; RESP 16; TEMP 36.8; O2SAT 99; BMI 22.1
--- OUTSIDE RECORDS SUMMARY | 2025-09-16 12:59 | XMS_ITS | Clinical Summary ---
Author Organization [facility] Address [address] [facility] Attn: Epic Prelude ADT [place] [phone] Care Team Providers Care Lead Net Software Developer Name Role Phone Haylee Portillo MD Primary Care Provider Allergies No known active allergies Medications loratadine-pseud oephedrine (CLARITIN-D) 5-120 mg Extended Release 12 hour tablet Take 1 Tablet by mouth 2 times daily. 05/19/2018 Active escitalopram oxalate (LEXAPRO) 20 mg tablet Take 20 mg by mouth daily. 05/19/2018 Active prazosin (MINIPRESS) 5 mg capsule Take 5 mg by mouth daily at bedtime. 05/19/2018 Active ARIPiprazole (ABILIFY) 15 mg tablet Take 15 mg by mouth daily. 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 Gender Identity Not on file Sexual Orientation Not on file Last Filed Vital Signs Vital Sign Reading Time Taken Comments Blood Pressure 109/58 05/19/2018 1:29 PM CDT Pulse 96 05/19/2018 1:29 PM CDT Temperature 36.7 C (98.1 F) 05/19/2018 1:29 PM CDT Respiratory Rate 16 05/19/2018 1:29 PM CDT Oxygen Saturation - - Inhaled Oxygen Concentration - - Weight 59 kg (130 lb) 05/19/2018 1:29 PM CDT Height 160 cm (5' 3 ) 05/19/2018 1:29 PM CDT Body Mass Index 23.03 05/19/2018 1:29 PM CDT Plan of Treatment Health Maintenance Due Date Last Done Comments HPV VACCINES (1 - 3-dose series) 2014 DTAP/TDAP/TD VACCINES (1 - Tdap) 2018 HEPATITIS B VACCINES (1 of 3 - 19+ 3-dose series) 03/19 CERVICAL CANCER SCREENING 2020 HPV/Cotest (21-29) 2020 PAP SMEAR 2020 INFLUENZA VACCINE (#1) 2025 CHLAMYDIA SCREENING (ANNUAL) 11-24 YEARS Discontinued 05/19/2018 Procedures Procedure Name Priority Date/Time Associated Diagnosis Comments GC/CHLAMYDIA, GENITAL Routine 05/19/2018 12:00 AM CDT from Last 3 Months or Most Recently Relevant to Health Maintenance Results * GC/CHLAMYDIA, GENITAL (05/19/2018 12:00 AM CDT) CHLAMYDIA TRACHOMATIS DNA Negative Negative 05/20/2018 3:10 PM CDT [facility] NEISSERIA GONORRHOEAE IVON Negative Negative 05/20/2018 3:10 PM CDT [facility] 05/19/2018 05/20/2018 Narrative [facility] - 05/20/2018 3:10 PM CDT Ordered by Contreras DE JESUS Performed at: 01 - [facility] [address], [place] [id number] Senior Finance Manager: Miguelito Biggs MD, Phone: [phone] us Historical Provider MICRO - GEN ORDERABLES COM F inal Result [facility] from Last 3 Months or Most Recently Relevant to Health Maintenance Care Teams Lead Net Software Developer Relationship Specialty Start Date End Date Haylee Portillo MD [address] [place] [phone] PCP - General Pediatrics 08/25/14
--- OUTSIDE RECORDS SUMMARY | 2025-09-16 12:59 | XMS_ITS | Data Portability ---
Author Organization [facility] [place], [facility] Address [address] [phone] Care Team Providers Care Locator Name Role Phone RISA AGRAWAL Primary Care Provider Assessment Encounter Date Assessment Date Assessment LastModified by Organization Details LastModified Time 06/01/2023 06/01/2023 Sx started after stopping SSRI medication. Has an appt with provider tomorrow to discuss medication changes annd her sx since stopping. No abnormalities noted on exam today. Keep upcoming appt tomorrow. Meclizine as needed until sx resolve. Do not drive while experiencing sx. Patient verbalized understanding and agreement with plan of care. Will call with questions or concerns. [email or web address] Not available 06/02/2023 13:04:15 Plan of Treatment Reminders Order Date Submit Date Provider Last Modified By Organization Details Last Modified Time Details Appointments None recorded. Lab rapid strep group A, throat [address] [facility] ([facility]), [address] [place] [address], [phone], 3 16:43:18 Referral None recorded. Procedures None recorded. Surgeries None recorded. Imaging None recorded. Medication Orders Augmentin 500 mg-125 mg tablet 2023 024 [id number], [address], [place], [place], [id number], 4 15:17:10 meclizine 12.5 mg tablet 2022 023 3 Not available 16:36:55 Patient TargetsNo targets recorded. Patient Instructions Encounter Date Encounter Id Patient Instructions Last Modified By Organization Details Last Modified Time 06/01/2023 [id number] aaron-hallpike [email or web address]* [email or web address] Not available 06/02/2023 13:06:37 Reason for Referral None Reported. Results Created Date Observation Date Name Description Value Unit Range Abnormal Flag Note LastModifiedBy Organization Detail LastModifiedTime 07/22/2007/22/2023 rapid strep group A, throa t Strep negati ve Not Available [facility] ([facility]) [address] [place] [address], [phone], 07/22/2023 16:34:16 Result Notes None recorded. Medical Equipment None Reported. Allergies No known drug allergies Medications Name Sig Start Date Stop Date Status Note LastModified by Organization Details LastModified Time doxycycli ne hyclate 100 mg capsule twice a day 07/22 completed 76898; Recorded 09/20/20 22 3:17PM by Kassi Dior (Lata calderon through LENORE Gonzales), Annotaryan on/Adden dum; Refill Quantity : 0; Not Available Not Available Not Available prednison e 20 mg tablet daily 07/22 completed 13523; Recorded 09/20/20 22 3:17PM by Kassi Dior (Laat calderon through LENORE Gonzales), Annotati on/Adden dum; Refill Quantity : 0; Not Available Not Available Not Available meclizine 12.5 mg tablet Take 1 tablet 3 times a day by oral route as needed for 7 days. 07/22 completed Not Available Not Available Not Available Prozac 20 mg capsule Take 1 capsule every day by oral route. active Not Available Not Available No t Available folic acid 1 mg tablet TAKE 1 TABLET BY MOUTH DAILY active Not Available Not Available No t Available mupirocin 2 % topical ointment two times daily 07/22 completed Recorded 06/29/20 22 3:25PM by LENORE Watson, Office Visit; Refill Quantity : 1; Each; Not Available Not Available Not Available Augmentin 500 mg-125 mg tablet Take 1 tablet every 12 hours by oral route for 7 days. 2023 active Not Available Not Available Not Giana labgerman lamotrigi ne 100 mg tablet TAKE 1 TABLET BY MOUTH EVERY EVENING active Not Available Not Available No t Available bupropion HCl XL 150 mg 24 hr tablet, extended release TAKE 1 TABLET BY MOUTH EVERY MORNING active Not Available Not Available No t Available duloxetin e 30 mg capsule,d elayed release TAKE 1 CAPSULE BY MOUTH DAILY active Not Available Not Available No t Available lithium carbonate two times daily 07/22 completed 0; Recorded 06/29/20 22 3:11PM by Camilo Valdez, Office Visit; Not Available Not Available Not Available daily 07/22 completed 0; Recorded 05/02/20 19 6:55PM by Nedra Melendez LPN, Office Visit; Not Available Not Available Not Available ondansetr on every four to six hours PRN 07/22 completed VO AT/tg; Recorded 08/28/20 22 11:48AM by Camilo Valdez, Historic al Summary; Refill Quantity : 0; Not Available Not Available Not Available 28 mg iron-800 mcg tablet TAKE 1 TABLET BY MOUTH DAILY active Not Available Not Available No t Available lurasidon e 20 mg tablet TAKE 1 TABLET BY MOUTH DAILY active Not Available Not Available No t Available Vitals Date Recorded Body height Body mass index (BMI) Body weight Oxygen saturation Heart rate Respiratory rate Body temperature Systolic And Diastolic Provider Name and Address Organization Details Last Updated DateTime 3 160.02 cm 18.2 kg/m2 52611.0 1 g 96 % 72 /min 20 /min 97.5 [degF] 122/62 mm[Hg] Ashly Hussein [facility], [facility] 3 16:40:43 Date Recorded Body height Body mass index (BMI) Body weight Oxygen saturation Heart rate Respiratory rate Body temperature Systolic And Diastolic Provider Name and Address Organization Details Last Updated DateTime 4 160.02 cm 19 kg/m2 13032.3 8 g 97 % 82 /min 16 /min 98.3 [degF] 124/80 mm[Hg] Stephanie Sidhu [facility], [facility] 4 14:54:51 Date Recorded Body height Body mass index (BMI) Body weight Oxygen saturation Heart rate Respiratory rate Body temperature Systolic And Diastolic Provider Name and Address Organization Details Last Updated DateTime 3 160.02 cm 18.3 kg/m2 11940.7 1 g 97 % 67 /min 18 /min 98.2 [degF] 106/70 mm[Hg] Daily Sotomayor [facility] L[facility] 3 16:35:39 Social History None recorded. Functional Status None recorded. Mental Status None recorded. Family History Nothing Reported Notes:Father; In good health , Mother; In good health Medical History No medical history recorded. Gynecological HistoryNo gynecological history recorded. Obstetrics History GPAL:G 0 P 0 0 0 0 Past Encounters Encounter ID Performer Location Encounter Start Date Encounter Closed Date Diagnosis/Indication Diagnosis SNOMED-CT Code Diagnosis ICD10 Code Diagnosis IMO Codes Diagnosis Note [id number] LENORE WATSON [facility] ([facility]) [address] [place] [phone] 06/01/2023 16:29:57 06/06/2023 15:42:10 Vertigo 230406074 R42 Medication stopped - side effect 674398486 Z92.29 [id number] NICOLAS OJEDA [facility] ([facility]) [address] [place] [phone] 07/22/2023 15:44:57 07/22/2023 17:49:33 Acute pharyngitis 915239516 J02.9 Reassured with negative strep test today. Declined COVID test today. Discussed with patient that this is likely viral and will have to run its course. Can take tylenol/ib uprofen as needed for pain and fevers. If worsening condition or no improvemen t in 7-10 days, return for further evaluation . [id number] LENORE GANNON [facility] ([facility]) [address] [place] [phone] 06/19/2024 14:24:36 06/19/2024 16:22:17 Acute bacterial bronchitis 301237943 J20.9 Discussed use of antibiotic with food.Use otc medication s for symptom support. Push oral fluids and rest.retur n if you develop new/worsen ing s/s Health Concerns Section Related Observation LastModified by Organization Detai ls LastModified Time None Recorded Concern Status LastModified by Organization Details LastModified Time None Recorded Advance Directives Directive None Recorded Payers Insurance Date Sequence Insurance Name Policy Number Policy Santillan Covered Member ID Santillan Member ID Guarantor Name 06/19/2024 1 [facility] ([place]ICA[place] REPLAC[place] - [place]MO) ANDRES Canseco [id number] Lesley Canseco Notes Date Note Type Note Provider Name and Address Organization Details Recorded Time 3 text/html DizzinessReported by PatientHPIFor severity, patient reportssome effect on daily activitiesandavoiding driving. For quality, patient reportslightheadedness,pratima ating, andswaying. For duration, patient reportsintermittent episodes lasting:. For aggravating factors, patient reportsbending/stooping,mo ving head, andpositional change. For associated symptoms, patient reportsno double vision,no blurred vision,no blindness, andno difficulty understanding speech.Recently stopped SSRI medication. Sx start after stopping medication.ROS as noted in the HPI LENORE WATSON [address] [place] [address], [phone], [facility]23 13:04:17 3 text/html Sore ThroatReported by PatientHPIFor quality, patient reportslaryngitisanddull. For severity, patient reportsworseningandmoderat e. For context, patient reportsothers with similar symptomsbut reportsno recent travel,no tick/insect bites,no new medications, andno known allergies. For associated symptoms, patient reportsfever,cough, andnausea(loss of appetite). For location, patient reportsbilateral. For onset/timing, patient reportsdate of onset 07/17/23andsudden. For duration, patient reportsstarted ___ day(s) agoandstarted 1 week(s) ago.ROS as noted in the HPI Patient is a 23 year old female who presents to the walk in clinic today for a sore throat. Reports sore throat, body aches, and chills for 7 days. Had an exposure to strep last week. NICOLAS OJEDA [address] [place], [phone], [facility], [place]. 07/22/2023 16:56:37 4 text/html ROS as noted in the HPI Pt reports symptoms starting 7 days ago. Symptoms include chest congestion, cough, weakness that is worsening, fever at night, no appetite and headache off/on. Denies sore throat, nausea, vomiting, diarrhea. Taking sudaphed and vitamin C. LENORE GANNON [address] [place], [phone], [facility], [place]. 06/20/2024 14:27:55 OBGyn Episode No OBEpisode recorded.
--- OUTSIDE RECORDS SUMMARY | 2025-09-16 12:59 | XMS_ITS | Encounter Summary ---
Author Organization [facility] Address [address] [place] [address] Care Team Providers Care Geriatric Social Worker Name Role Phone Haylee Portillo MD Primary Care Provider Encounter Details Date Type Department Care Team (Latest Contact Info) Description 2000 Outpatient Historical [facility] [address] [place] [address] Kendrick Perez [address] [place], [place] [id number] Routine child health exam (Primary Dx); Screening for phenylketonuria (PKU) Social History Tobacco Use Types Packs/Day Years Used Date Smoking Tobacco: Never Assessed Comments Unknown Sex and Gender Information Value Date Recorded Sex Assigned at Not on file 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
--- OUTSIDE RECORDS SUMMARY | 2025-09-16 13:00 | XMS_ITS | Clinical Summary ---
Author Organization [facility] Address [address] [place] [address] Care Team Providers Care Auto Body Technician Name Role Phone Haylee Portillo MD Primary Care Provider Allergies No known active allergies Medications ARIPiprazole (ABILIFY) 15 mg tablet Take 15 mg by mouth daily. Active escitalopram oxalate (LEXAPRO) 20 mg tablet Take 20 mg by mouth daily. Active prazosin (MINIPRESS) 5 mg capsule Take 5 mg by mouth daily at bedtime. Active loratadine-pseud oephedrine (CLARITIN-D) 5-120 mg Extended Release 12 hour tablet Take 1 Tablet by mouth 2 times daily. 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 Gender Identity Not on file Sexual Orientation Not on file Last Filed Vital Signs Vital Sign Reading Time Taken Comments Blood Pressure 109/58 05/19/2018 1:29 PM CDT Pulse 96 05/19/2018 1:29 PM CDT Temperature 36.7 C (98.1 F) 05/19/2018 1:29 PM CDT Respiratory Rate 16 05/19/2018 1:29 PM CDT Oxygen Saturation 99% 05/19/2018 1:29 PM CDT Inhaled Oxygen Concentration - - Weight 59 [...] AM CDT) CHLAMYDIA TRACHOMATIS DNA Negative Negative [facility] NEISSERIA GONORRHOEAE IVON Negative Negative [facility] 05/19/2018 05/20/2018 Narrative [facility] - 05/20/2018 3:10 PM CDT Performed at: 01 - [facility], [place] [id number] Referral Manager: Miguelito Biggs MD, Phone: [phone] us Historical Provider MICRO - GEN ORDERABLES COM F inal Result [facility] from Last 3 Months or Most Recently Relevant to Health Maintenance Insurance [address] [place], [place] [id number] [place] [address] Care Teams Auto Body Technician Relationship Specialty Start Date End Date Haylee Portillo MD [address] [place] [phone] PCP - General Pediatrics 08/25/14
[2025-09-16 13:20] LABS: Hematocrit 41.6 % (36-47); Hemoglobin 14.00 g/dL (11.27-16.99); Mean Corpuscular HGB Conc 33.7 g/dL (30-55); Mean Corpuscular Hemoglobin 31.5 pg (27-33); Mean Corpuscular Volume 93.7 fl (85-98); Nucleated Red Blood Cells % 0 %; Platelet Count 199 10^3/cmm (157-399); Red Blood Count 4.44 10^6/uL (3.85-5.65); White Blood Count 5.65 10^3/uL (3.29-11.43)
[2025-09-16 13:23] LABS: Glucose Urine UA Negative (Normal); Nitrate Urine Negative (Negative); Specific Gravity, Urine 1.024 (1.005-1.030)
--- NOTE | 2025-09-16 13:24 | W.ED.ABDPA2 ---
HPI - Abdominal Pain General: Chief Complaint: Abdominal Pain Stated Complaint: chest pain thru and thru Time Seen by Provider: 09/16/25 13:03 History of Present Illness: Patient is a 25-year-old female that presents to the emergency room with epigastric pain. Content: This started on Thanksgiving, 2 days ago. Patient stated she used to be a former alcohol misuse/abuse 6 months ago. She started on the Vivitrol shot to avoid this pattern. She stopped the Vivitrol shot in order to plan small amount of drinking Thursday night before Thanksgiving. She stated she went back to her old habits, and started drinking excessively Thursday night. She was ill on Thanksgiving, epigastric pain, nausea, vomiting. The pain has continued, however she is not nauseated and vomiting at this time. She has not had much food substance the last 2 days, and has barely tolerated clear liquids. She states her pain is epigastric and radiates around the upper left to her back. She does not have any rashes or bruises. No temperatures. She does have a previous history of bad gallbladder however has not had the ability to perform an outpatient HIDA scan. She has previous history of this when alcohol intake was an issue. She stated her doctor stated this was most likely a bad gallbladder. She has a lot of guilt regarding today's presentation. She does not voice any self-harm, however is voicing self guilt. Associated Symptoms: Denies chills, constipation, diarrhea, fever(s), nausea (not having n/v today) and vomiting Related Data Home Medications ?Medication ?Instructions ?Recorded ?Confirmed vitamins no.154-ferrous 1 tab PO QPM 04/20/24 04/25/25 fumarate 27 mg-folic acid 1 mg tablet duloxetine 30 mg capsule,delayed 30 mg PO DAILY 02/28/25 04/25/25 release folic acid 1 mg tablet 1 mg PO DAILY 02/28/25 04/25/25 naltrexone microspheres 380 mg mg IM .q 30 days 02/28/25 04/25/25 intramuscular suspension,extended release (Vivitrol) Previous Rx's ?Medication ?Instructions ?Recorded duloxetine 60 mg capsule,delayed 60 mg PO DAILY #30 caps 12/22/24 release (Cymbalta) lamotrigine 100 mg tablet 100 mg PO QPM #30 tabs 12/22/24 (Lamictal) pantoprazole 40 mg tablet,delayed 40 mg PO DAILY #30 tabs 07/24/25 release ondansetron 4 mg disintegrating 4 mg PO Q8H PRN nausea and 09/16/25 tablet vomiting 4 days #14 tabs Allergies Allergy/AdvReac Type Severity Reaction Status Date / Time No Known Allergies Allergy Verified 02/28/25 14:45 Review of Systems General: Reports: 10 or more systems reviewed and unremarkable except in HPI and below Const: Denies: fever(s) or chills Eyes: Denies: change in vision or blurry vision ENMT: Denies: throat pain or mouth pain Card: Denies: chest pain or palpitations Resp: Denies: dyspnea, productive cough or non-productive cough GI: Reports: abdominal pain; Denies: nausea (not having n/v today), vomiting, diarrhea or constipation : Denies: flank pain or difficulty voiding Musc: Denies: neck pain, back pain or extremity pain Neuro: Denies: headache(s) or numbness in extremities Psych: Denies: anxiety or depression PFSH ED PFSH: Medical History (Updated 09/16/25 @ 13:58 by JONATHAN Walsh) Alcohol use disorder Intercourse use Cannabis dependence, uncomplicated Other stimulant dependence, in remission Nicotine dependence, cigarettes, uncomplicated Bipolar 1 disorder Post-traumatic stress disorder, chronic Psychiatric care Surgical History H/O removal of cyst Family History Grandmother Diabetes maternal and maternal great Hyperlipidemia maternal great Hypertension maternal Breast cancer, Onset Age: 71 maternal Denies family history of Colon cancer Ovarian cancer Clotting disorder Heart disease Anesthesia complication Bleeding disorder Uterine cancer Thyroid disease Stroke Social History Smoking and tobacco/nicotine status: never used tobacco/nicotine Alcohol intake: never Substance/Drug Use: current Other substance/drug use details: Daily Physical Exam Const: COMMON NORMALS: no acute distress, average body habitus, patient oriented x3, no limitations, healthy appearing, alert and well nourished HENMT: COMMON NORMALS: normocephalic, atraumatic and hearing grossly normal bilaterally HEAD & SCALP: normocephalic and atraumatic Neck/C-Spine: COMMON NORMALS: full ROM, no lymphadenopathy, supple, no meningeal signs and no JVD Lymph: LYMPHATIC: no lymphadenopathy noted Chest: COMMONS NORMALS: normal inspection of the chest and normal palpation of entire chest wall Resp: COMMON NORMALS: normal respiratory effort, No retractions, No use of accessory muscles and clear to auscultation bilaterally AUSCULTATION: clear to auscultation bilaterally Cardio: COMMON NORMALS: no JVD, regular rhythm, S1 normal heart sound present, S2 normal heart sound present, No gallops present (Cardio), No clicks present (Cardio), No murmurs present (Cardio), No rub (Cardio) and Peripheral pulses 2+ throughout RATE: tachycardic RHYTHM: regular rhythm HEART SOUNDS: S1 normal heart sound present and S2 normal heart sound present PERIPHERAL PULSES: Peripheral pulses 2+ throughout GI: COMMON NORMALS: Soft to palpation INSPECTION: Yes normal to inspection AUSCULTATION: Yes normoactive bowel sounds PALPATION: Yes Soft to palpation, Yes Tenderness to palpation present (GI) (epigastrum) Details: LUQ and RUQ and Yes Guarding due to palpation present (GI) RECTAL EXAM: deferred : COMMON NORMALS: Yes no CVA tenderness BLADDER/KIDNEY EXAM: Yes no CVA tenderness Back/Pelvis: COMMON NORMALS: no CVA tenderness and thoracic and lumbar spine normal to inspection Neuro: COMMON NORMALS: patient oriented x3 SENSORIUM/ORIENTATION: Yes alert MENINGEAL SIGNS: Yes no meningeal signs Course Vital Signs: Vital signs: Vital Signs Temperature 98.2 F 09/16/25 12:54 Pulse Rate 80 09/16/25 14:25 Respiratory Rate 16 09/16/25 13:33 Blood Pressure 125/82 09/16/25 14:25 Pulse Oximetry 100 09/16/25 14:25 Oxygen Delivery Me thod Room Air 09/16/25 13:33 MDM - Abdominal Pain Medical Decision Making Patient is a 25-year-old female with ceasing alcohol intake for 6 months, on Vivitrol shot, that planted a controlled drinking with her friend the night before , that did not go well. She stated she went back to her old habits, and drink too much. She has been ill on , , Thursday, and has continued epigastric pain today. She does not have nausea and vomiting today. She is producing appropriate urine output. She is not tolerating food at this time. Initial urine analysis is without concern. CBC is without additional concerns. Will further obtain CMP, urine . Medical Records I reviewed the patient's medical records. Lab Data I reviewed the patient's lab results. 09/16/25 13:10 09/16/25 13:10 Labs/Radiology: Laboratory Results WBC 5.65 10^3/uL (3.29-11.43) 09/16/25 13:10 RBC 4.44 10^6/uL (3.85-5.65) 09/16/25 13:10 Hgb 14.00 g/dL (11.27-16.99) 09/16/25 13:10 Hct 41.6 % (36-47) 09/16/25 13:10 MCV 93.7 fl (85-98) 09/16/25 13:10 MCH 31.5 pg (27-33) 09/16/25 13:10 MCHC 33.7 g/dL (30-55) 09/16/25 13:10 RDW 12.3 % (12.1-15.1) 09/16/25 13:10 Plt Count 199 10^3/cmm (157-399) 09/16/25 13:10 MPV 10.2 fL (7.4-10.4) 09/16/25 13:10 Neut % (Auto) 63.6 % 09/16/25 13:10 Lymph % (Auto) 23.4 % 09/16/25 13:10 [place] % (Auto) 9.0 % 09/16/25 13:10 Eos % (Auto) 3.2 % 09/16/25 13:10 Baso % (Auto) 0.4 % 09/16/25 13:10 Neut # (Auto) 3.60 10^3/uL (1.8-7.7) 09/16/25 13:10 Lymph # (Auto) 1.3 10^3/uL (0.8-4.8) 09/16/25 13:10 [place] # (Auto) 0.5 10^3/uL (0.2-0.9) 09/16/25 13:10 Eos # (Auto) 0.2 10^3/uL (0.0-0.8) 09/16/25 13:10 Baso # (Auto) 0.0 10^3/uL (0.0-0.1) 09/16/25 13:10 Nucleated RBC % (auto) 0 % 09/16/25 13:10 Nucleated RBCs # 0.0 /100WBC 09/16/25 13:10 Sodium 133 mmol/L (136-145) L 09/16/25 13:10 Potassium 3.5 mmol/L (3.5-5.1) 09/16/25 13:10 Chloride 97 mmol/L (98-107) L 09/16/25 13:10 Carbon Dioxide 29 mmol/L (22-29) 09/16/25 13:10 Anion Gap 10.5 (5-19) 09/16/25 13:10 BUN 9 mg/dL (6-20) 09/16/25 13:10 Creatinine 0.6 mg/dL (0.5-0.9) 09/16/25 13:10 GFR Calculation 120.8 mL/min (90-130) 09/16/25 13:10 Glucose 94 mg/dL (65-115) 09/16/25 13:10 Calculated Osmolality 274 mOsm/kg (285-295) L 09/16/25 13:10 Calcium 9.2 mg/dL (8.5-10.5) 09/16/25 13:10 Total Bilirubin 0.4 mg/dL (0.15-1.2) 09/16/25 13:10 AST 17 U/L (0-32) 09/16/25 13:10 ALT 14 U/L (0-33) 09/16/25 13:10 Alkaline Phosphatase 105 U/L (35-105) 09/16/25 13:10 Total Protein 7.1 g/dL (6.6-8.7) 09/16/25 13:10 Albumin 4.7 g/dL (3.5-5.2) 09/16/25 13:10 Globulin 2.4 g/dL (1.3-4.6) 09/16/25 13:10 Lipase 52 U/L (13-60) 09/16/25 13:10 HCG, Qual Negative (Negative) 09/16/25 13:13 Urine Color Yellow (Yellow) 09/16/25 13:13 Urine Appearance Cloudy (CLEAR) A 09/16/25 13:13 Urine pH 6.0 (5-7) 09/16/25 13:13 Ur Specific [place] 1.024 (1.005-1.030) 09/16/25 13:13 Urine Protein Negative (Negative) 09/16/25 13:13 Urine Glucose (UA) Negative (Normal) 09/16/25 13:13 Urine Ketones Trace (Negative) 09/16/25 13:13 Urine Blood Negative (Negative) 09/16/25 13:13 Urine Nitrate Negative (Negative) 09/16/25 13:13 Urine Bilirubin Negative (Negative) 09/16/25 13:13 Urine Urobilinogen 1.0 mg/dL (Negative) 09/16/25 13:13 Ur Leukocyte Esterase Negative (Negative) 09/16/25 13:13 Urine RBC 3-5 /hpf (0-2) 09/16/25 13:13 Urine WBC 0-5 /hpf (0-5) 09/16/25 13:13 Ur Squamous Epith Cells 6-10 /hpf (0-5) 09/16/25 13:13 Amorphous Sediment Not Reportable 09/16/25 13:13 Urine Bacteria None seen /hpf (NONE) 09/16/25 13:13 Hyaline Casts 0-4 /lpf H 09/16/25 13:13 All radiology interpretation(s) finalized by discharge EKG Data EKG 1: Interpretation: NSR, normal axis, QTc 378 ms, rate 94 Discharge Plan Discharge Patient Disposition: Home Clinical Impression: Gastroenteritis Condition: Stable Prescriptions: New ondansetron 4 mg tablet,disintegrating 4 mg PO Q8H PRN (Reason: nausea and vomiting) 4 Days Qty: 14 0RF No Action duloxetine [Cymbalta] 60 mg capsule,delayed release(DR/EC) 60 mg PO DAILY Qty: 30 1RF Lamictal 100 mg tablet 100 mg PO QPM Qty: 30 2RF folic acid 1 mg tablet 1 mg PO DAILY duloxetine 30 mg capsule,delayed release(DR/EC) 30 mg PO DAILY Vivitrol 380 mg suspension,extended rel recon IM .q 30 days pantoprazole 40 mg tablet,delayed release (DR/EC) 40 mg PO DAILY Qty: 30 6RF PNV no.154-iron fumarate-folic 27 mg iron- 1 mg tablet 1 tab PO QPM Discharge Orders: Discharge ED (Routine); Ordered 09/16/25 Ordered By: Sanna Levy Referrals: Bernard Smith MD [Primary Care Provider, Family Practice] Discharge Diet: Clear Liquid and Full LIquid Patient Instructions: Acute Nausea and Vomiting (ED), Abdominal Pain (ED), Patient Portal & Cj Instructions Activity Restrictions/Additional Instructions: - Ice chips, clear liquid diet until this resolves. After this resolves, you may advance to a full liquid diet. Information has been given to you. -Call on Thursday to follow-up with your doctor. - At the pharmacy: Zofran. Use cautiously. Side effects includes constipation, which could make symptoms worse. This will melt on your tongue, and help your immediate symptoms if you need it. - Continue the no drinking. Consider obtaining your Vivitrol shot. - Follow-up with your primary care physician for an outpatient HIDA scan that he was concerned about. - Feel free to return to the ED if you need additional care, worsening nausea, vomiting, fever greater than 100.4 ?F, not passing gas, worsening abdominal pain. Thank you for choosing [facility] for your healthcare needs today. You have been screened and evaluated and felt safe for discharge. Health conditions do change or evolve sometimes and as such it is important that you follow up with your Primary Doctor to be re checked, 3-5 days is a general good time frame for follow up. You are always welcome to return to the ED for re assessment if your symptoms are worsening or you have new concerns Stand Alone Forms: Work/School Release Print Language: Kyrgyz Coding Level of Care Code ED Health And Nutrition Specialist for Milly Rodas
[2025-09-16 13:25] LABS: Add Urine Microscopic? YES
[2025-09-16 13:33] VITALS: BP 119/67; PULSE 84; RESP 16; O2SAT 99
[2025-09-16 13:38] LABS: Alanine Aminotransferase 14 U/L (0-33); Albumin Level 4.7 g/dL (3.5-5.2); Alkaline Phosphatase 105 U/L (35-105); Anion Gap 10.5 (5-19); Aspartate Amino Transferase 17 U/L (0-32); Blood Urea Nitrogen 9 mg/dL (6-20); Calcium 9.2 mg/dL (8.5-10.5); Carbon Dioxide 29 mmol/L (22-29); Chloride 97 mmol/L (98-107); Creatinine Clr Calc Pharmacy 121.3933; Globulin 2.4 g/dL (1.3-4.6); Glucose 94 mg/dL (65-115); Lipase 52 U/L (13-60); Osmolality Calculated 274 mOsm/kg (285-295); Potassium 3.5 mmol/L (3.5-5.1); Sodium 133 mmol/L (136-145); Total Protein 7.1 g/dL (6.6-8.7)
[2025-09-16 13:52] LABS: HCG Qualitative Urine. Negative (Negative)
[2025-09-16] MEDS: pantoprazole 40 mg SDV 80 MG IVP (14:01)
[2025-09-16 14:25] VITALS: BP 125/82; PULSE 80; O2SAT 100
--- NOTE | 2025-09-16 16:30 | ECG_ITS ---
[facility] 2025[facility]16 Pat Name: Lesley Canseco Department: Room: Gender: Female Financial Internship: : 2000 Requested By: Sanna Levy Order Number: [id number] Cerna MD: Maicol Milan M.D. Measurements Intervals [place] Rate: 94 P: 66 NV: 137 QRS: 75 QRSD: 82 T: 56 QT: 327 QTc: 409 Interpretive Statements SINUS RHYTHM Compared to ECG 10/18/2017 18:43:32 Sinus tachycardia no longer present Electronically Signed On 09-16-2025 17:13:36 [employer]KE [employer] by Maicol Milan M.D. [email or web address]
== END 2025-09-16 14:26 | disposition home or self-care (01) ==
PROVIDERS: Emergency Provider Physician Assistant; PCP Family Medicine
DX: K52.9 Noninfective gastroenteritis and colitis, unspecified (principal)
CPT/HCPCS: 80053; 81001; 81025; 83690; 85025; 93005; 96361; 96374; 99284; J2470; J7120